=== PATIENT | male | born 1985 | race Caucasian/White ===

== ENCOUNTER 2024-12-30 20:27 | Emergency (ER) | payer SELFPAY ==
[2024-12-30 20:32] VITALS: BP 121/80
[2024-12-30 20:53] VITALS: BMI 37.5
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
[2024-12-30] MEDS: DUONEB 3 ML INH (23:20)
== END 2024-12-31 00:30 | disposition home or self-care (01) ==
LOC: EMR 20:27
PROVIDERS: EMERGENCY PHYSICIAN Student in an Organized Health Care Education/Training Program
DX: T59.811A Toxic effect of smoke, accidental (unintentional), initial encounter (principal); Y92.009 Unspecified place in unspecified non-institutional (private) residence as the place of occurrence of the external cause; F17.290 Nicotine dependence, other tobacco product, uncomplicated
CPT/HCPCS: 99283; 94640; 71046